=== PATIENT | female | born 2005 | race African-American/Black ===

== ENCOUNTER 2025-04-08 09:27 | Emergency (ER) | payer OTHER, SELFPAY ==
[2025-04-08] VITALS (12 sets, daily range): BP systolic 128–131; BP diastolic 75–89; PULSE 70–73; RESP 16–20; TEMP 37; O2SAT 98–100
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
[2025-04-08] MEDS: ONDANSETRON INJ 4 MG/2 ML VIAL IV PUSH (10:59)
[2025-04-08] MEDS: MORPHINE SULFATE (*CRX) 4 MG/ML INJ IV PUSH (10:59)
[2025-04-08 11:20] LABS: Estimated CRCL calculation 80 ml/min; Estimated Glomerular Filt Rate > 60
--- OUTSIDE RECORDS SUMMARY | 2025-04-08 11:28 | XMS_ITS | Clinical Summary ---
Author Organization [facility] Address [address] [place] [address] Care Team Providers Care Patient Experience Coordinator Name Role Phone WillyBelkis Barrios NP Primary Care Provider Source Comments [facility],non-owned Affiliates and Associated Physician Practices is amultiple site organization consisting of ambulatory clinics and hospital sitesin [place], [place], [place] and [place]. This disclosure is being madepursuant to the Care Everywhere program and may not contain all information available regarding this patient. Last updated 18.[employer] [facility] Allergies No known active allergies Medications * Be aware that medications may not be up to date on this document. Alwaysverify current medications with the patient. acetaminophen (TYLENOL) 160 MG/5ML solution Take 20 mL by mouth every 4 hours as needed for Fever or Pain 473 mL 08/14/2021 Active ibuprofen (ADVIL; MOTRIN) 100 MG/5ML suspension Take 30 mL by mouth every 6 hours as needed for Pain or Fever 473 mL 08/14/2021 Active Social History Tobacco Use Types Packs/Day Years Used Date Smoking Tobacco: Never Smokeless Tobacco: Never Alcohol Use Standard Drinks/Week Comments Never 0 (1 standard drink = 0.6 oz pur e alcohol) Comments No Sex and Gender Information Value Date Recorded Sex Assigned at Not on file Legal Sex Female 3:27 PM CDT Gender Identity Not on file Sexual Orientation Not on file Last Filed Vital Signs Vital Sign Reading Time Taken Comments Blood Pressure 126/82 08/14/2021 8:55 PM COMPUTATIONAL LINGUIST Pulse 104 08/14/2021 8:55 PM COMPUTATIONAL LINGUIST Temperature 38.2 C (100.8 F) 08/14/2021 8:55 PM COMPUTATIONAL LINGUIST Respiratory Rate 24 08/14/2021 8:55 PM COMPUTATIONAL LINGUIST Oxygen Saturation 96% 08/14/2021 8:55 PM COMPUTATIONAL LINGUIST Inhaled Oxygen Concentration - - Weight 109 kg (240 lb 4.8 oz) 08/14/2021 9:03 PM COMPUTATIONAL LINGUIST Height 167.6 cm (5' 6) 03/06/2021 2:17 AM CDT Body Mass Index - - Plan of Treatment Health Maintenance Due Date Last Done Comments HIV SCREENING 2018 HPV VACCINE (1 - 3-dose series) 2018 CHLAMYDIA/GONORRHEA SCREENING 2019 MENINGOCOCCAL (Group B) VACC INE SHARED DECISION-MAKING (1 of 2 - Standard) 2019 HEPATITIS C SCREENING 08/30/2021 DTAP/TDAP/TD VACCINES (1 - Tdap) 2022 HEPATITIS B VACCINE (1 of 3 - 19+ 3-dose series) 2022 COVID-19 VACCINE (1 - 2023-2 5 season) 2024 DEPRESSION SCREENING 08/07/2024 INFLUENZA VACCINE (#1) 2025 ZOSTER VACCINE (1 of 2) 2053 HIB VACCINE Aged Out No longer eligi ble based on patient's age to complete this topic MENINGOCOCCAL GROUPS A/C/Y/W VACCINE Aged Out No longer eligible b ased on patient's age to complete this topic PNEUMOCOCCAL VACCINE Aged Out No long er eligible based on patient's age to complete this topic Care Teams Patient Experience Coordinator Relationship Specialty Start Date End Date Belkis Benjamin NP [address], [place] [id number] PCP - General Nurse Practitioner 04/20/15
[2025-04-08 11:42] LABS: SPREG INTERNAL CONTROL Positive; Serum Qual hCG Negative
--- NOTE | 2025-04-08 13:06 | PC.NURSE ---
EDP, IVAN Trammell at bedside to remove pt c collar and states pt can ambulate to restroom at this time.
== END 2025-04-08 13:58 | disposition home or self-care (01) ==
PROVIDERS: Emergency Provider Physician Assistant
DX: S16.1XXA Strain of muscle, fascia and tendon at neck level, initial encounter (principal); S80.12XA Contusion of left lower leg, initial encounter; V44.5XXA Car driver injured in collision with heavy transport vehicle or bus in traffic accident, initial encounter
CPT/HCPCS: 36415; 70450; 71260; 72125; 72129; 72132; 73552; 73564; 74177; 84703; 96374; 96375; 99284; J2270; J2405; Q9967